=== PATIENT | male | born 1940 | race Caucasian/White ===

== ENCOUNTER → 2016-08-25 | Outpatient (CLI) | payer MEDICARE, OTHER ==
[2016-08-25 13:49] LABS: ABSOLUTE EOSINOPHILS # (AUTO) 0.2 10^3/uL (0.0-0.6); ABSOLUTE LYMPHOCYTES (AUTO) 1.8 10^3/uL (0.5-4.7); ABSOLUTE MONOCYTES (AUTO) 0.3 10^3/uL (0.1-1.4); ABSOLUTE NEUT (AUTO) 2.7 10^3/uL (1.7-8.2); BASOPHILS % (AUTO) 0.7 % (0-2); EOSINOPHILS % (AUTO) 3.4 % (0-6); HEMATOCRIT 43.4 % (37.9-51.0); HEMOGLOBIN 14.1 g/dL (13.5-17.0); HGB HCT DIFFERENCE -1.1; LYMPHOCYTES % (AUTO) 35.6 % (13-45); MEAN CORPUSCULAR HEMOGLOBIN 30.4 pg (27.0-33.4); MEAN CORPUSCULAR HGB CONC 32.4 g/dL (32.0-36.0); MEAN CORPUSCULAR VOLUME 94 fl (80-97); MONOCYTES % (AUTO) 6.8 % (3-13); RED BLOOD COUNT 4.64 10^6/uL (4.35-5.55); RED CELL DISTRIBUTION WIDTH 13.5 % (11.5-14.0); SEGMENTED NEUTROPHILS % (AUTO) 53.5 % (42-78)
[2016-08-25 13:52] LABS: APPEARANCE,URINE CLEAR; BILIRUBIN,URINE NEGATIVE (NEGATIVE); GLUCOSE, URINE NEGATIVE (NEGATIVE); KETONES,URINE NEGATIVE (NEGATIVE); LEUKOCYTE ESTERASE,URINE NEGATIVE (NEGATIVE); NITRITE,URINE NEGATIVE (NEGATIVE); PROTEIN,URINE NEGATIVE (NEGATIVE); URINE SPECIFIC GRAVITY 1.012; UROBILINOGEN,URINE NEGATIVE mg/dL (<2.0)
[2016-08-25 14:05] LABS: ANION GAP 12 (5-19); BLOOD UREA NITROGEN 12 mg/dL (7-20); CALCIUM 9.4 mg/dL (8.4-10.2); CARBON DIOXIDE 30 mmol/L (22-30); CHLORIDE 101 mmol/L (98-107); CREATININE RESULT 0.77 mg/dL (0.52-1.25); GLUCOSE 114 mg/dL (75-110); POTASSIUM 4.3 mmol/L (3.6-5.0); SODIUM 142.6 mmol/L (137-145)
--- NOTE | 2016-08-25 20:55 | EKG REPORT ---
SEVERITY:- NORMAL ECG - SINUS RHYTHM : Confirmed by: Arnulfo Cruz MD 25-Aug-2016 20:54:41
== END ==
LOC: OD 11:58
PROVIDERS: ATTEND Orthopaedic Surgery
DX: Z01.811 Encounter for preprocedural respiratory examination (principal); Z01.818 Encounter for other preprocedural examination
CPT/HCPCS: 36415; 71020; 80048; 81001; 85025; 93005; 93010

== ENCOUNTER 2016-09-19 05:25 | Day surgery (SDC) | payer MEDICARE, OTHER ==
[~2016-09-19 05:25] MED LIST: CLINDAMYCIN 600 MG/D5W RTU 600 MG/50 ML RTUPB IV PRN; LACTATED RINGERS 1000 ML IV PRN; LIDOCAINE 0.5% INJ-PF (5 MG/ML) 50 ML SDV SUBCUT PRN
[2016-09-19] MEDS ORDERED: FENTANYL CITRATE INJ/PF 100 MCG/2 ML AMPUL ONE (06:57)
[2016-09-19] MEDS ORDERED: MIDAZOLAM 2 MG/2 ML INJ ONE (06:57)
[2016-09-19] MEDS ORDERED: EPHEDRINE SULFATE INJ 50 MG/1 ML AMPULE ONE (06:58)
[2016-09-19] MEDS ORDERED: DEXMEDETOMIDINE INJ 80 MCG/20 ML VIAL IV ONE (06:58)
[2016-09-19] MEDS ORDERED: PROPOFOL INJ 200 MG/20 ML VIAL IV ONE (06:58)
[2016-09-19] MEDS ORDERED: BUPIVACAINE HCL 0.5 % INJ/PF 30 ML SDV ONE (07:20)
[2016-09-19] MEDS ORDERED: LIDOCAINE 1% INJ-PF (10 MG/ML) 30 ML SDV ONE (07:26)
[2016-09-19] MEDS ORDERED: MORPHINE SULFATE 10 MG/ML INJ IV PRN ×2 (07:59→09:40)
[2016-09-19] MEDS ORDERED: OXYCODONE-ACETAMINOPHEN 5-325 MG TABLET PO PRN ×3 (07:59→09:40)
[2016-09-19] MEDS ORDERED: ONDANSETRON HCL INJ/PF 4 MG/2 ML SDV IV PRN ×2 (07:59→09:40)
[2016-09-19] MEDS ORDERED: DIPHENHYDRAMINE HCL 50 MG/ML VIAL IV PRN (07:59)
[2016-09-19] MEDS ORDERED: MEPERIDINE HCL/PF INJ 25 MG/1 ML DISP.SYRIN IV PRN (07:59)
[2016-09-19] MEDS ORDERED: FENTANYL CITRATE INJ/PF 100 MCG/2 ML AMPUL IV PRN ×3 (07:59)
[2016-09-19] MEDS ORDERED: PROMETHAZINE HCL INJ 25 MG/1 ML VIAL IV PRN ×2 (07:59)
--- NOTE | 2016-09-19 09:42 | PDOC DISCHARGE SUMMARY ---
Discharge Summary (SDC) - Discharge Final Diagnosis: Right Thumb CMC Arthroplasty Date of Surgery: 09/19/16 Discharge Date: 09/19/16 Condition: Good Treatment or Instructions: Schedule Follow Up w/ Dr. Leo Lombardo @ [facility] to be seen in 10-14 days or as scheduled Blue: [place]: [place]: Keep splint clean/dry/intact. Ice and elevate May begin finger range of motion attempting to make full fist. Stool softener of choice when on pain medication. Prescriptions: Oxycodone HCl/Acetaminophen [Percocet 5-325 mg Tablet] 1 - 2 tab PO ASDIR PRN # 45 tablet PRN Reason: Discharge Diet: As Tolerated Respiratory Treatments at Home: Deep Breathing/Coughing Discharge Activity: No Lifting Over 10 Pounds, No Lifting/Push/Pulling Report the Following to Your Physician Immediately: Increase in Pain, Fever over 101 Degrees, Unusual Bleeding, Redness, Swelling, Warmth, Increased Soreness, Numbness, Tingling Sensation
--- NOTE | 2016-09-19 09:42 | Operative Report ---
Operative Report DATE OF SURGERY: 09/19/16 PREOPERATIVE DIAGNOSIS: Right Thumb CMC Arthritis POSTOPERATIVE DIAGNOSIS: Same OPERATION: Right Thumb CMC Arthroplasty w/ Trapeziectomy, Ligament Reconstruction Tendon Interposition Utilizing FCR SURGEON: PATRICIA JUAREZ ANESTHESIA: GA COMPLICATIONS: None ESTIMATED BLOOD LOSS: Minmal PROCEDURE: Indication for above procedure: 75-year-old male with end-stage right thumb CMC arthritis. Patient has been seen by me we have attempted to ensure measures including activity modification , injections, anti-inflammatories and immobilization. Patient has failed these conservative measures and his pain has limited his activities of daily living. At this point we will proceed with operative intervention which includes CMC arthroplasty. Risks and benefits were explained to the patient patient verbalized understanding consented for the procedure. Procedure In Detail: Patient was seen and evaluated in the preoperative holding area. The RIGHT upper extremity was initialized and marked. Patient received 2g of Ancef IV for bacterial prophylaxis. Patient was taken back to the operative room where transferred to the operative table and placed under general anesthesia. Once they were adequately anesthetized and a nonsterile tourniquet was placed on the upper extremity. A surgical team debriefing was performed ensuring all instrumentation was available, the surgical procedure was discussed with possible concerns reviewed. The upper extremity was prepped with chlorhexidine and alcohol and draped in a sterile fashion. A timeout was done identifying correct patient, procedure and extremity everyone in attendance agree with this and verbalized no concerns. The extremity was exsanguinated the tourniquet was inflated to 200 mmHg. A longitudinal skin incision was made in line with the first dorsal compartment. I then meticulously dissected down to the interval of the APL and EPB identifying the superficial radial nerve branches which were retracted. I then identified the radial artery which was protected throughout the entirety of the case with a [place] elevator. A T-shaped capsulotomy was made at the CMC joint of the thumb. A freer elevator was used to christine out the CMC joint, fluoroscopy confirmed the thumb cmc joint placement. The capsule was released off of the trapezium circumferentially. The FCR insertion volarly was protected. Using a rongeur the trapezium was excised as one unit. I then removed any residual loose bodies and bone fragments. I then inspected the STT joint. There was advanced degenerative changes of the STT joint thus with a osteotome the proximal half of the trapezoid was excised.. I then turned my attention to harvesting the FCR tendon. The FCR was identified and 2 transverse incisions were made. The entire FCR tendon was harvested. The tendon was then retrieved from the CMC joint of the thumb. The base of the thumb metacarpal was rongeured to allow for cancellous tendon healing. I tenolysed the FCR up to its insertion at the second metacarpal. Using a rongeur the 1st metacarpal base osteophytes were removed. Bone tunnels were created with the use of #1 PDS suture in a horizontal mattress fashion while my geriatric nursing assistant held distraction at the thumb CMC joint. Once this was complete excellent stability of the CMC joint was achieved without evidence of subsidence. I fixated the remaining FCR tendon to the FCR tendon that remained attached the to second metacarpal with 3-0 Vicryl forming an anchovy with a small portion placed into the STT joint. Fluoroscopy was then obtained which demonstrated good stability of my CMC arthroplasty without evidence of subsidence at rest or with stress. The wound was then copiously irrigated with normal saline. A peripheral vasculature is carefully coagulated with bipolar cautery The capsule was closed with interrupted 3-0 vicryl. Superficial radial nerve was once again inspected and protected during skin closure. Skin was closed with 4-0 Monocryl subcuticular suture reinforced with Dermabond and Steri-Strips.. The patient was placed in a thumb spica splint. Sponge counts, instrument counts and needle counts were correct. 20 mL of 0.5 marcaine was injected for postoperative pain control. Patient was extubated and transferred to the operative stretcher. There was no intraoperative complications patient tolerated procedure well with stable to PACU. Postoperative plan: Patient will continue the splint for 2 weeks. Patient will then be transitioned to a cast for an additional 2 weeks. He will then begin occupational therapy at 4 weeks and will be fitted for a thermoplastic splint at that time.
[2016-09-19] MEDS ORDERED: SUCCINYLCHOLINE CHLORIDE INJ 200 MG/10 ML VIAL ONE (11:01)
[2016-09-19] MEDS ORDERED: ONDANSETRON HCL INJ/PF 4 MG/2 ML SDV ONE (11:01)
[2016-09-19] MEDS ORDERED: DEXAMETHASONE SOD PHOSPHATE INJ 4 MG/1 ML VIAL ONE (11:01)
[2016-09-19] MEDS ORDERED: METOCLOPRAMIDE HCL INJ/PF 10 MG/2 ML SDV ONE (11:01)
[2016-09-19] MEDS ORDERED: LIDOCAINE 2% INJ-PF (20 MG/ML) 10 ML AMPUL ONE (11:01)
[2016-09-19 11:37] VITALS: BP 132/84
== END 2016-09-19 11:35 | disposition home or self-care (01) ==
LOC: OROUT 05:25
PROVIDERS: ATTEND Orthopaedic Surgery
PROC: 0MQ70ZZ Repair Right Hand Bursa and Ligament, Open Approach (ICD-10-PCS; 2016-09-19)
PROC: 0PTM0ZZ Resection of Right Carpal, Open Approach (ICD-10-PCS; principal; 2016-09-19 07:45)
DX: M18.9 Osteoarthritis of first carpometacarpal joint, unspecified (principal); I10 Essential (primary) hypertension; J45.909 Unspecified asthma, uncomplicated; Z79.51 Long term (current) use of inhaled steroids; Z79.82 Long term (current) use of aspirin; Z79.899 Other long term (current) drug therapy; Z88.8 Allergy status to other drugs, medicaments and biological substances; Z88.0 Allergy status to penicillin; Z88.2 Allergy status to sulfonamides; I25.2 Old myocardial infarction; Z87.891 Personal history of nicotine dependence
CPT/HCPCS: 73120; 25447; 26480; J2250; J1100; J3490 ×3; J3010; J2765; A9270; J0330; J2405; J2704; 00300; 01810

== ENCOUNTER 2017-08-04 05:12 | Emergency (ER) | payer MEDICARE, OTHER ==
[2017-08-04] MEDS ORDERED: ONDANSETRON HCL INJ/PF 4 MG/2 ML SDV IV ONE (05:42)
[2017-08-04] MEDS ORDERED: MECLIZINE HCL 12.5 MG TABLET PO ONE (05:44)
--- NOTE | 2017-08-04 05:47 | ER Document Report ---
ED Medical Screen (RME) - General Chief Complaint: Dizziness Stated Complaint: DIZZINESS Time Seen by Provider: 08/04/17 05:32 Mode of Arrival: Ambulatory Information source: Patient Notes: Patient presents to emergency department with reports that he felt like he was going to pass out last night. Reports that last night he woke up rolled over became very dizzy. Later on he got up to go the restroom and he felt like he almost passed out. He said he started sweating became nauseated could barely walk. He denies chest pain vomiting diarrhea. Reports he received influenza vaccine. History of [place] TRAVEL OUTSIDE OF THE [place] IN LAST 30 DAYS: No - Related Data Allergies/Adverse Reactions: fluticasone propionate [From Advair HFA] Allergy (Mild, Verified 05/23/16 08:48) throat swelling formoterol fumarate [From Foradil Aerolizer] Allergy (Mild, Verified 05/23/16 08 :48) doesnt remember Penicillins Allergy (Mild, Verified 05/23/16 08:48) Hives salmeterol xinafoate [From Advair HFA] Allergy (Mild, Verified 05/23/16 08:48) throat swelling Sulfa (Sulfonamide Antibiotics) Allergy (Mild, Verified 05/23/16 08:48) Hives Past Medical History - Past Medical History Cardiac Medical History: Reports: Hx Heart Attack - x4, Hx Hypertension - on meds Denies: Hx Coronary Artery Disease Pulmonary Medical History: Reports: Hx Pneumonia - hx of Denies: Hx Asthma, Hx Bronchitis, Hx COPD - inhalers, Hx Tuberculosis Neurological Medical History: Denies: Hx Cerebrovascular Accident, Hx Seizures GI Medical History: Reports: Hx Ulcer Musculoskeltal Medical History: Reports Hx Arthritis Past Surgical History: Reports: Hx Abdominal Surgery - colon resection, Hx Cholecystectomy, Hx Orthopedic Surgery - cervical fusion - Immunizations Hx Diphtheria, Pertussis, Tetanus Vaccination: Yes Physical Exam - Vital signs Vitals: Temp Pulse Resp BP Pulse Ox 97.5 F 57 L 18 140/82 H 97 08/04/17 05:22 08/04/17 05:22 08/04/17 05:22 08/04/17 05:22 08/04/17 05:22 Course - Vital Signs Vital signs: Temp Pulse Resp BP Pulse Ox 97.5 F 57 L 18 140/82 H 97 08/04/17 05:22 08/04/17 05:22 08/04/17 05:22 08/04/17 05:22 08/04/17 05:22 Doctor's Discharge - Discharge Referrals: STEPHEN BENNETT MD [Primary Care Provider] - Follow up as needed
[2017-08-04] MEDS ORDERED: MECLIZINE HCL 12.5 MG TABLET ONE (06:06)
[2017-08-04 06:07] LABS: ABSOLUTE EOSINOPHILS # (AUTO) 0.1 10^3/uL (0.0-0.6); ABSOLUTE LYMPHOCYTES (AUTO) 1.3 10^3/uL (0.5-4.7); ABSOLUTE MONOCYTES (AUTO) 0.4 10^3/uL (0.1-1.4); ABSOLUTE NEUT (AUTO) 2.6 10^3/uL (1.7-8.2); BASOPHILS % (AUTO) 0.8 % (0-2); EOSINOPHILS % (AUTO) 3.1 % (0-6); HEMOGLOBIN 13.8 g/dL (13.5-17.0); LYMPHOCYTES % (AUTO) 29.4 % (13-45); MEAN CORPUSCULAR HEMOGLOBIN 31.5 pg (27.0-33.4); MEAN CORPUSCULAR HGB CONC 34.6 g/dL (32.0-36.0); MEAN CORPUSCULAR VOLUME 91 fl (80-97); MONOCYTES % (AUTO) 8.2 % (3-13); PLATELET COUNT 191 10^3/uL (150-450); RED BLOOD COUNT 4.39 10^6/uL (4.35-5.55); RED CELL DISTRIBUTION WIDTH 13.6 % (11.5-14.0); SEGMENTED NEUTROPHILS % (AUTO) 58.5 % (42-78); TOTAL CELLS COUNTED % (AUTO) 100 %; WHITE BLOOD COUNT 4.4 10^3/uL (4.0-10.5)
[2017-08-04 06:23] LABS: ALANINE AMINOTRANSFERASE 33 U/L (21-72); ALBUMIN 4.1 g/dL (3.5-5.0); ALKALINE PHOSPHATASE 70 U/L (38-126); ANION GAP 9 (5-19); ASPARTATE AMINO TRANSFERASE 22 U/L (17-59); BILIRUBIN,DIRECT 0.3 mg/dL (0.0-0.4); BILIRUBIN,TOTAL 0.5 mg/dL (0.2-1.3); BLOOD UREA NITROGEN 14 mg/dL (7-20); CALCIUM 9.8 mg/dL (8.4-10.2); CARBON DIOXIDE 27 mmol/L (22-30); CHLORIDE 107 mmol/L (98-107); CREATINE KINASE 66 U/L (55-170); GLUCOSE 122 mg/dL (75-110); POTASSIUM 4.4 mmol/L (3.6-5.0); TOTAL PROTEIN 6.2 g/dL (6.3-8.2)
[2017-08-04 06:30] LABS: CREATINE KINASE MB 0.65 ng/mL (<4.55)
[2017-08-04 06:32] LABS: TROPONIN I < 0.012 ng/mL
--- NOTE | 2017-08-04 06:35 | ER Document Report ---
ED General - General Chief Complaint: Dizziness Stated Complaint: DIZZINESS Time Seen by Provider: 08/04/17 05:32 Mode of Arrival: Ambulatory Information source: Patient Notes: 76-year-old male presents with complaints of dizziness. Patient denies any fevers or chills denies any vomiting patient notes last night he had an episode of dizziness when he turned his head, notes this morning he had 3 more episodes of dizziness when he moved his head. Patient notes he had a recent sinus infection and feels stuffy. Patient denies any chest pain shortness of breath TRAVEL OUTSIDE OF THE [place] IN LAST 30 DAYS: No - HPI Onset: Yesterday Onset/Duration: Sudden Quality of pain: No pain Severity: Mild Pain Level: Denies Associated symptoms: Other Exacerbated by: Movement, Other Relieved by: Remaining still Similar symptoms previously: No Recently seen / treated by doctor: No - Related Data Allergies/Adverse Reactions: fluticasone propionate [From Advair HFA] Allergy (Mild, Verified 05/23/16 08:48) throat swelling formoterol fumarate [From Foradil Aerolizer] Allergy (Mild, Verified 05/23/16 08 :48) doesnt remember Penicillins Allergy (Mild, Verified 05/23/16 08:48) Hives salmeterol xinafoate [From Advair HFA] Allergy (Mild, Verified 05/23/16 08:48) throat swelling Sulfa (Sulfonamide Antibiotics) Allergy (Mild, Verified 05/23/16 08:48) Hives Past Medical History - General Information source: Patient - Social History Smoking Status: Never Smoker Cigarette use (# per day): No Chew tobacco use (# tins/day): No Smoking Education Provided: No Family History: Hypertension Patient has suicidal ideation: No Patient has homicidal ideation: No - Past Medical History Cardiac Medical History: Reports: Hx Heart Attack - x5, Hx Hypertension - on meds Denies: Hx Coronary Artery Disease Pulmonary Medical History: Reports: Hx Pneumonia - hx of Denies: Hx Asthma, Hx Bronchitis, Hx COPD - inhalers, Hx Tuberculosis Neurological Medical History: Denies: Hx Cerebrovascular Accident, Hx Seizures Renal/ Medical History: Denies: Hx Peritoneal Dialysis GI Medical History: Reports: Hx Ulcer Musculoskeltal Medical History: Reports Hx Arthritis Past Surgical History: Reports: Hx Abdominal Surgery - colon resection, Hx Cardiac Surgery - STENT, Hx Cholecystectomy, Hx Orthopedic Surgery - cervical fusion - Immunizations Hx Diphtheria, Pertussis, Tetanus Vaccination: Yes Hx Pneumococcal Vaccination: 04/06/13 Review of Systems - Review of Systems Notes: REVIEW OF SYSTEMS: CONSTITUTIONAL : Denies fever, chills, or sweats. Denies recent illness. EENT: Denies eye, ear, throat, or mouth pain or symptoms. Denies nasal or sinus congestion or discharge. Denies throat, tongue, or mouth swelling or difficulty swallowing. CARDIOVASCULAR: Denies chest pain. Denies palpitations or racing or irregular heart beat. Denies ankle edema. RESPIRATORY: Denies cough, cold, or chest congestion. Denies shortness of breath, difficulty breathing, or wheezing. GASTROINTESTINAL: Admits to nausea GENITOURINARY: Denies difficulty urinating, painful urination, burning, frequency, blood in urine, or discharge. MUSCULOSKELETAL: Denies back or neck pain or stiffness. Denies joint pain or swelling. SKIN: Denies rash, lesions or sores. HEMATOLOGIC : Denies easy bruising or bleeding. LYMPHATIC: Denies swollen, enlarged glands. NEUROLOGICAL: Admits to dizziness PSYCHIATRIC: Denies anxiety or stress. Denies depression, suicidal ideation, or homicidal ideation. ALL OTHER SYSTEMS REVIEWED AND NEGATIVE. Dictation was performed using [employer] voice recognition software PHYSICAL EXAMINATION: GENERAL: Well-appearing, well-nourished and in no acute distress. HEAD: Atraumatic, normocephalic. EYES: Pupils equal round and reactive to light, extraocular movements intact, sclera anicteric, conjunctiva are normal. ENT: Nares patent, oropharynx clear without exudates. Moist mucous membranes. NECK: Normal range of motion, supple without lymphadenopathy LUNGS: Breath sounds clear to auscultation bilaterally and equal. No wheezes rales or rhonchi. HEART: Regular rate and rhythm without murmurs ABDOMEN: Soft, nontender, nondistended abdomen. No guarding, no rebound. No masses appreciated. Musculoskeletal: Normal range of motion, no pitting or edema. No cyanosis. NEUROLOGICAL: Cranial nerves grossly intact. Normal speech, normal gait. Normal sensory, motor exams easily reproducible vertigo PSYCH: Normal mood, normal affect. SKIN: Warm, Dry, normal turgor, no rashes or lesions noted. Physical Exam - Vital signs Vitals: Temp Pulse Resp BP Pulse Ox 97.5 F 57 L 18 140/82 H 97 08/04/17 05:22 08/04/17 05:22 08/04/17 05:22 08/04/17 05:22 08/04/17 05:22 Course - Re-evaluation Re-evalutation: 08/04/17 06:35 CT head has been ordered but family wishes to defer on imaging we explained risks and benefits 08/04/17 07:27 Patient's lab work noted no significant abnormality, his vertigo has resolved with Antivert, I will discharge home with understand that he must return immediately if there are any other concerns After performing a Medical Screening Examination, I estimate there is LOW risk for INTRACRANIAL HEMORRHAGE, ISCHEMIC CVA, MALIGNANT DYSRHYTHMIA, ACUTE CORONARY SYNDROME, MENINGITIS, PULMONARY EMBOLISM, or SEPSIS thus I consider the discharge disposition reasonable. I have reevaluated this patient multiple times and no significant life threatening changes are noted. The patient and I have discussed the diagnosis and risks, and we agree with discharging home with close follow-up with the understanding that symptoms and presentations can change. We also discussed returning to the Emergency Department immediately if new or worsening symptoms occur. We have discussed the symptoms which are most concerning (e.g., changing or worsening pain, weakness, vomiting, fever) that necessitate immediate return. - Vital Signs Vital signs: Temp Pulse Resp BP Pulse Ox 97.5 F 73 17 140/82 H 93 08/04/17 05:22 08/04/17 05:35 08/04/17 07:00 08/04/17 05:35 08/04/17 07:00 - Laboratory Result Diagrams: 08/04/17 05:54 08/04/17 05:54 Laboratory results interpreted by me: 08/04/17 08/04/17 05:54 06:48 Glucose 122 H Total Protein 6.2 L Urine Urobilinogen 2.0 H Discharge - Discharge Clinical Impression: Vertigo Condition: Stable Disposition: HOME, SELF-CARE Instructions: Vertigo ([facility]), Meclizine ([facility]), Dizziness ([facility]) Prescriptions: Meclizine HCl [Antivert 25 mg Tablet] 25 mg PO TID PRN #21 tablet PRN Reason: Referrals: STEPHEN BENNETT MD [Primary Care Provider] - 08/05/17
[2017-08-04 07:10] LABS: APPEARANCE,URINE CLEAR; BILIRUBIN,URINE NEGATIVE (NEGATIVE); COLOR,URINE YELLOW; GLUCOSE, URINE NEGATIVE (NEGATIVE); KETONES,URINE NEGATIVE (NEGATIVE); LEUKOCYTE ESTERASE,URINE NEGATIVE (NEGATIVE); NITRITE,URINE NEGATIVE (NEGATIVE); PROTEIN,URINE NEGATIVE (NEGATIVE)
[2017-08-04 07:46] VITALS: BP 135/68
--- NOTE | 2017-08-04 12:18 | EKG REPORT ---
SEVERITY:- NORMAL ECG - SINUS RHYTHM : Confirmed by: Lyubov Peña MD 04-Aug-2017 12:17:00
== END 2017-08-04 07:32 | disposition home or self-care (01) ==
LOC: ER 05:12
DX: R42 Dizziness and giddiness (principal); R11.0 Nausea; I10 Essential (primary) hypertension; I25.2 Old myocardial infarction; Z88.8 Allergy status to other drugs, medicaments and biological substances; Z88.0 Allergy status to penicillin; Z88.2 Allergy status to sulfonamides
CPT/HCPCS: 93005; 99284; 96374; 36415; 82553; 82550; 85025; 80053; 81001; 84484; 93010; J2405; J3490

== ENCOUNTER → 2019-10-09 | Outpatient (CLI) | payer MEDICARE, OTHER ==
[2019-10-09 09:28] LABS: ABSOLUTE EOSINOPHILS # (AUTO) 0.2 10^3/uL (0.0-0.6); ABSOLUTE LYMPHOCYTES (AUTO) 1.5 10^3/uL (0.5-4.7); ABSOLUTE MONOCYTES (AUTO) 0.4 10^3/uL (0.1-1.4); ABSOLUTE NEUT (AUTO) 2.9 10^3/uL (1.7-8.2); BASOPHILS % (AUTO) 0.9 % (0-2); HEMATOCRIT 44.9 % (37.9-51.0); HEMOGLOBIN 15.4 g/dL (13.5-17.0); MEAN CORPUSCULAR HEMOGLOBIN 31.6 pg (27.0-33.4); MEAN CORPUSCULAR HGB CONC 34.3 g/dL (32.0-36.0); MEAN CORPUSCULAR VOLUME 92 fl (80-97); MONOCYTES % (AUTO) 8.1 % (3-13); PLATELET COUNT 210 10^3/uL (150-450); RED BLOOD COUNT 4.87 10^6/uL (4.35-5.55); RED CELL DISTRIBUTION WIDTH 13.4 % (11.5-14.0); TOTAL CELLS COUNTED % (AUTO) 100 %
[2019-10-09 09:39] LABS: ALBUMIN 4.4 g/dL (3.5-5.0); ALKALINE PHOSPHATASE 69 U/L (38-126); ANION GAP 10 (5-19); ASPARTATE AMINO TRANSFERASE 25 U/L (17-59); BILIRUBIN,DIRECT 0.3 mg/dL (0.0-0.4); BILIRUBIN,TOTAL 0.7 mg/dL (0.2-1.3); BLOOD UREA NITROGEN 16 mg/dL (7-20); CALCIUM 9.3 mg/dL (8.4-10.2); CARBON DIOXIDE 28 mmol/L (22-30); CHLORIDE 103 mmol/L (98-107); CHOLESTEROL 89.16 mg/dL (0-200); GLUCOSE 105 mg/dL (75-110); POTASSIUM 4.5 mmol/L (3.6-5.0); TOTAL PROTEIN 7.3 g/dL (6.3-8.2); TRIGLYCERIDES 40 mg/dL (<150)
[2019-10-09 09:55] LABS: FREE T4 (FREE THYROXINE) 0.88 ng/dL (0.78-2.19)
[2019-10-09 09:56] LABS: DIRECT LDL < 30 mg/dL (<100)
[2019-10-09 10:09] LABS: THYROID STIMULATING HORMONE 3.19 uIU/mL (0.47-4.68)
== END ==
LOC: OD 08:06
PROVIDERS: ATTEND Internal Medicine
DX: R35.0 Frequency of micturition (principal); Z79.899 Other long term (current) drug therapy
CPT/HCPCS: 36415; 80053; 80061; 83036; 84153; 84439; 84443; 85025